=== PATIENT | male | born 1940 | race Caucasian/White ===

== ENCOUNTER 2018-12-13 16:13 | Inpatient (IN) | payer OTHER ==
[~2018-12-13] VITALS: Ht 160 cm; Wt 71.2 kg
--- NOTE | ~2018-12-13 | DS ---
[place], [place] DISCHARGE SUMMARY [id number] UNIT #: [id number] ROOM: 317 DOCTOR: BESS LEBRON MD BIRTHDATE: [birth year] DOS: 12/24/2018 CHIEF COMPLAINT: "Yeah, I need to talk to about being in the [place]." HISTORY OF PRESENT ILLNESS: This is a 78-year-old white male known to me from his stay at [facility] in [place], [place]. The patient is admitted now due to increased sexual behavior that is spiraling out of control. The patient has been making lewd and profane comments. He has also been touching female residents inappropriately and attempting to put his hand under their blouse or in their privates. Attempts to redirect him have only led to him becoming increasingly physically combative with staff. Attempts to utilize medications while at the long-term care facility have not been successful and he has continued to spiral out of control, putting both himself and others at significant risk of harm. He is admitted now to rule out any organic factors to stabilize on medication, to engage in individual and todd milieu activity and to return then to the least restrictive environment. SUMMARY OF HOSPITAL COURSE: The patient was admitted to the unit where he was maintained on his Exelon capsules 6 mg b.i.d. and Namenda 10 mg b.i.d. He was started on Provera 10 mg b.i.d. His Celexa was discontinued and Tagamet was started to decrease his libido. Over time, it became obvious that this was not effective. Additionally, he was found to be grossly delusional and psychotic. He continued to talk about marrying a [place] girl and being in the [place], but when family was contacted, none of this was true. He never served in [place] and was never there. Because of the significant delusions, Risperdal was started to break the psychotic symptomatology. Eventually, the Provera was increased to 10 mg t.i.d. and the Tagamet was stopped in order to lessen the risk of polypharmacy. The patient did become much more redirectable. He did exhibit some sedation with the Risperdal, so eventually it was discontinued and Invega 3 mg in the morning was utilized as a non-sedative approach to break the psychosis. With the Invega, he did seem to be much less delusional and with the Provera at 10 mg t.i.d., he was much less sexual. The patient had improved sufficiently to return back to [facility], where I will be the treating psychiatrist of record. MENTAL STATUS AT DISCHARGE: The patient is alert and oriented to person, place, but not time. Mood still did seem to be somewhat labile, but he was much more redirectable. He was much less sexually preoccupied. He was also much less delusional. He does have processing slowness and short term memory is poor. FINAL DIAGNOSES UPON DISCHARGE: 1. Intermittent explosive disorder. 2. Brief psychotic disorder. 3. Alzheimer's dementia. DISPOSITION: The patient is returning to [facility]. At the time of discharge, he was both medically and psychiatrically stable. I will be the treating psychiatrist of record upon his readmission to [facility]. All of his prescriptions have been e-scribed to [facility] pharmacy. [place], [place] DISCHARGE SUMMARY NAME: [facility] SHAFER [facility] [id number] UNIT #: [id number] ROOM: 317 DOCTOR: BESS LEBRON MD BIRTHDATE: [birth year] BESS LEBRON MD CM:DISCHARG [phone] BESS LEBRON MD 12/24/18 0952 interface
--- NOTE | ~2018-12-13 | PR ---
[place], [place] PROGRESS NOTE [id number] UNIT #: [id number] ROOM: 317 DOCTOR: BESS LEBRON MD BIRTHDATE: [birth year] DOS: 12/21/2018 CHIEF COMPLAINT: "Oh good morning. Breakfast is good." SUMMARY OF THE VISIT: The patient was interviewed as he was finishing his breakfast. He continues to be pleasantly confused and also delusional. He talks elaborately of his exploits in [place], although family reports he did not serve in [place]. He was never to a [place] girl, etc. He also remained somewhat sexually preoccupied, but is able to be redirected. He is tolerating the current medication regimen well and the switch from the Risperdal to the Invega seems to help lessen any sedation and somnolence. MENTAL STATUS: He remains alert and oriented to self, place, but not time. Mood does seem to be strongly trending towards euthymia and affect is more appropriate. There is no zuleyma, hypomania. He remains delusional. Memory has significant gaps. PLAN: I will continue his current psychotropic regimen, continue to engage in individual and todd milieu, returning to the least restrictive environment when psychiatrically stable. BESS LEBRON MD CM:PNTRANS [id number] BESS LEBRON MD 12/21/18 1053 interface
--- NOTE | ~2018-12-13 | PR ---
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 The patient engaged readily in conversation with me. The patient reports that he slept off and on last night because he has nightmares about being in the [place] War and that he has only been out of the war for 4 years and that he has been having these nightmares for the last 2 years. The patient reports that his appetite is good. Staff reports that the patient continues to be euphoric and inappropriate laughing at times. He continues to be delusional thinking that he was in the , which has been confirmed that he has never served in the . He thinks that he was talking to Cyn Mcpherson on the telephone; however, this was his son. The patient reports that he was told by Cyn Mcpherson that he will be receiving a Purple Heart for being a prisoner of war in the Holocaust. MENTAL STATUS EXAMINATION: The patient was alert and oriented to himself. He was pleasant and cooperative with me. Hyperverbal, disorganized. His thought process is disorganized. Positive delusions, some paranoia. No auditory or visual hallucinations noted at this time. The patient's mood was very euphoric. Affect congruent with mood. The patient is very animated. PLAN: I am going to start the patient on Risperdal 0.5 mg twice a day to hopefully improve signs and symptoms in order to diminish the delusions and the paranoia. The patient does have nitrites positive on his urinalysis, medical staff is awaiting a urine culture before they treat him. The patient's phenobarbital level was 38.3. We will continue to monitor the patient for how he tolerates the medication and continue to monitor for effectiveness. Continue to encourage the patient to engage in individual and todd milieu activity. Continue fall and safety precautions. Plan is to return the patient to the least restrictive environment once he is considered psychiatrically stable. [place], [place] PROGRESS NOTE NAME: CYN SHAFER UNIT #: [id number] ROOM: 317 DOCTOR: ROWDY CROCKER CNP BIRTHDATE: [birth year] Rowdy Crocker CNP CM:FRANSISCO 14 ROWDY CROCKER CNP 12/16/18 2214 interface
--- NOTE | ~2018-12-13 | PR ---
[place], [place] PROGRESS NOTE [id number] UN[facility] #: [id number] ROOM: 317 DOCTOR: BESS LEBRON MD BIRTHDATE: [birth year] DOS: 12/19/2018 CHIEF COMPLAINT: "Oh, I haven't been started my breakfast, it's a pretty big one." SUMMARY OF THE VISIT: The patient was interviewed as he was beginning to start his breakfast. He was smiling and engaging. Nurses report he continues to seek out select female peers and is still very sexually inappropriate. He also has grandiose and delusional in his thinking, talking about owning [employer], being in [place], having [place] woman, etc. MENTAL STATUS: He is alert and oriented to person, possibly place, but not to time. Mood is still labile and inappropriate. He has a lot of inappropriate laughing and smiling. His short term memory continues to be poor. PLAN: I will go ahead and change the date of his p.r.n. Ativan to at least go till the end of December and I will simultaneously increase his Risperdal to 1 mg b.i.d. to break the psychotic symptomatology and the delusions. We will monitor and support, engage in individual and todd milieu activity, returning to the least restrictive environment when psychiatrically stable. BESS LEBRON MD CM:PNTRANS 5 [phone] BESS LEBRON MD 12/19/18 232 interface
--- NOTE | ~2018-12-13 | PR ---
[place], [place] PROGRESS NOTE [id number] UNIT #: [id number] ROOM: 317 DOCTOR: ROWDY AMBRIZ CNP BIRTHDATE: [birth year] DOS: 12/15/2018 CHIEF COMPLAINT: "I am doing good so far." SUMMARY OF THE VISIT: The patient was interviewed as he sat in the dining room. He just finished his breakfast. The patient did engage readily in conversation with me. The patient reports that he slept well last night. He reports his appetite is good. He is requesting a banana serial and more milk. Staff reports that the patient has been compliant with his medications. He does laugh inappropriately at times. He did sleep well last night. No aggression or agitation reported. MENTAL STATUS EXAMINATION: The patient was alert and oriented to person, place and time. He is pleasant and cooperative with me. No zuleyma or hypomania noted. No delusions or paranoia noted. No psychotic symptoms noted. No auditory or visual hallucinations noted. The patient's mood was calm. His affect is congruent with mood. No agitation, aggression or irritability noted at this time. PLAN: The patient does have a UTI. The medical doctor has been consulted to treat this. I will continue the patient's other medications as prescribed, monitor for effectiveness of medication and monitor for any side effects. Continue to encourage the patient to engage in individual and todd milieu activity. Continue fall and safety precautions. Plan is to return the patient to the least restrictive environment when he is considered psychiatrically stable. Rowdy Ambriz CNP CM:PNTRANS [phone] ROWDY AMBRIZ CNP 12/15/18 2344 interface
--- NOTE | ~2018-12-13 | WRIGHTHP ---
[place], [place] PATIENT HISTORY AND PHYSICAL EXAM [id number] #: [id number] ROOM: 317 DOCTOR: BESS LEBRON MD BIRTHDATE: [birth year] DOS: 12/14/2018 INITIAL PSYCHIATRIC EVALUATION CHIEF COMPLAINT: "Yeah, I need to talk to you about being in the [place]." HISTORY OF PRESENT ILLNESS: This is a 78-year-old white male known to me from his stay at [facility]. The patient is admitted due to increased sexual behavior that is spiraling out of control. The patient has been making lewd comments, but he has also been touching female residents inappropriately attempting to put his hand under their blouse or in their privates. Attempts to redirect him have only led to him being physically combative with staff. Attempts to utilize medications to stop the sexual behavior and the agitation have been unsuccessful and he is putting others at substantial risk for self-harm as well as himself. He is admitted now to rule out organic factors and to attempt to stabilize on medication, returning then to the least restrictive environment when psychiatrically stable. PAST MEDICAL HISTORY: Remarkable for atrial fibrillation and atrial flutter, coronary artery disease, diabetes, DVT, hyperlipidemia, hypertension, hypothyroidism, seizure disorder, and vitamin D deficiency. ALLERGIES: He lists allergies to DEPAKOTE, IODINE, SHELLFISH and PENICILLIN. SOCIAL HISTORY: He is a former smoker. Does have a history of alcohol use. No known drug use. STRENGTHS: Good verbal skills. WEAKNESSES: Cognitive decline, poor impulse control, poor coping skills. MENTAL STATUS: He is alert and oriented to person, possibly place, not to time. He does remember he lives at [place]. He does have patchy gaps in his memory. He appears to have poor impulse control. He does not appear manic or hypomanic and does not appear psychotic. Memory has gaps. DIAGNOSES: Intermittent explosive disorder, Alzheimer's dementia. PLAN: I have maintained Exelon and Namenda. I have started him on Provera 10 mg b.i.d. I have discontinued Celexa, but will start Tagamet as well to decrease his libido. Between the Tagamet and the Provera, I am hoping to impact positively on this impulse control issue which are putting many women at risk for harm. We will continue to engage in individual and todd milieu activity, returning to the least restrictive environment when psychiatrically stable. [place], [place] PATIENT HISTORY AND PHYSICAL EXAM NAME: CYN SHAFER UNIT #: [id number] ROOM: 317 DOCTOR: BESS LEBRON MD BIRTHDATE: [birth year] BESS LEBRON MD CM:HISPHYS:PATIENT HISTORY AND PHYSICAL EXAMINATION [phone] BESS LEBRON MD 12/14/18 1042 interface
--- NOTE | ~2018-12-13 | PR ---
[place], [place] PROGRESS NOTE [id number] UNIT #: [id number] ROOM: 317 DOCTOR: BESS LEBRON MD BIRTHDATE: [birth year] DOS: 12/17/2018 INTERVAL NOTE CHIEF COMPLAINT: "This is a big breakfast." SUMMARY OF THE VISIT: The patient was interviewed as he was sitting down to his breakfast. He smiled as I approached, he engaged readily in conversation, voicing no complaints. Nurses report that overall he has been very compliant. Much of the stories that he talks about of being in [place] have turned out to be fabrication. The patient is not showing agitation or aggression, however. MENTAL STATUS EXAMINATION: He is alert and oriented to self, unclear place, certainly not time. Mood does seem to be fairly euthymic. Affect appropriate. There is no zuleyma or hypomania. There is no gross psychotic symptoms. Short term memory is very poor. PLAN: I will continue his current psychotropic regimen, continue to engage in individual and todd milieu activity, returning to the least restrictive environment when psychiatrically stable. BESS LEBRON MD CM:PNTRANS [phone] BESS LEBRON MD 12/17/182233 interface
--- NOTE | ~2018-12-13 | EKG ---
[place], [place] ELECTROCARDIOGRAM REPORT NAME: CYN SHAFER UNIT #: [id number] ROOM: 317 DOCTOR: EPIPHANY DRAFT REPORT BIRTHDATE: [birth year] [facility] Test Date: 2018-12-13 Test Time: 23:50:56 Pat Name: CYN SHAFER Department: Room: [facility] 1 Gender: M Flex O Writer Operator: Araseli Daigle : 1940 Requested By: BESS LEBRON Order Number: [id number] Reading MD: Catrachita Schumacher MD Measurements Intervals Stevens Rate: 53 P: 48 SC: 172 QRS: -54 QRSD: 143 T: 14 QT: 445 QTc: 418 Interpretive Statements Sinus rhythm RBBB and LAFB Electronically Signed On 12-16-2018 7:44:24 PDT by Catrachita Schumacher MD CM:EKGRPT:ELECTROCARDIOGRAM REPORT [id number] BESS LEBRON MD EPIPHANY DRAFT REPORT BESS LEBRON MD
[~2018-12-13 16:13] MED LIST: BACLOFEN5 MG PO; CARDIZEM120 MG PO; CRESTOR10 M1 PO; ELIQUIS5 M1 PO; LANTUS SOL100 UNIT/1 SQ; MIRALAX17 GM PO; PHENOBARBITAL PO; RIVASTIGMINE TAR6 M1 PO; SYNTHROID25 MCG PO; VITAMIN D5000 UNI1 PO; ZONEGRAN100 MG PO
[2018-12-13 16:20] VITALS: BP 150/62
--- NOTE | 2018-12-13 18:01 | NUR ---
pt resting in bed with eyes closed. No complaints at this time. call light within reach.
--- NOTE | 2018-12-13 18:44 | NUR ---
[facility] HERE TO TRANSFER PT TO THE FLOOR.
[2018-12-13 18:50] VITALS: BP 156/78
[2018-12-13 19:30] VITALS: BP 156/78
--- NOTE | 2018-12-13 20:00 | NUR ---
CYN SHAFER a 78 year old M admitted via from the ADMITTING as a emergency 72 hr. hold admission. Arrived on unit at 1850 ALLERGIES: PENICILLIN, DEPAKOTE, IODINE, SHELLFISH. Vital signs are: 97.7-66-20 137/70. The IS PINK SLIPPED AND REFUSED TO SIGN THE following forms with stated: Authorization For The Release of Medical Information, Clothing List, Consent to Voluntary Admission and Hospitalization, Consent and Release Forms/Receipt of Rights, Acknowledgement of Advance Directive Information, Behavioral Health Consent Form, and Informed Consent of Medications. Admitted under the services of [facility]. A search was conducted and hazardous articles were removed. Client was oriented to the unit. LIZBETH MTZ PATIENT WITH NO WOUNDS ON ADMISSION. PATIENT CAME TO [facility] FROM [facility] AND WAS PINK SLIPPED.
[2018-12-13 20:13] VITALS: BP 137/70
[2018-12-13] MEDS ORDERED: NAMENDA-14 PO (20:29)
[2018-12-13] MEDS ORDERED: NAMENDA-21 PO (20:30)
[2018-12-13] MEDS ORDERED: NAMENDA-28 PO (20:32)
[2018-12-13] MEDS ORDERED: PROVERA10 MG PO (20:33)
[2018-12-13] MEDS ORDERED: CELEXA20 MG PO (20:34)
[2018-12-13 20:42] VITALS: BP 137/70
--- NOTE | 2018-12-13 20:50 | NUR ---
DR PELLETIER ON UNIT TO SEE PATIENT. DR PELLETIER ORDERED LAB WORK AND RADIOLOGY
--- NOTE | 2018-12-13 22:38 | NUR ---
DR RAMIREZ UPDATED ABOUT PATIENT ADMISSION. PATIENT UNDER DR FINLEY FOR MEDICAL MANAGEMENT
--- NOTE | 2018-12-13 23:34 | NUR ---
PATIENT OFF UNIT WITH MENTAL HEALTH WORKER, RN, AND SECURITY FOR CHEST XRAY
--- NOTE | 2018-12-13 23:45 | NUR ---
PATIENT RETURNED AND BACK FROM RADIOLOGY AND RECEIVED CHEST XRAY
--- NOTE | 2018-12-13 23:50 | NUR ---
RESPIRATORY ON UNIT TO DO PATIENT EKG
[2018-12-14 00:01] LABS: BASO % 0.8 % (0.0-1.0); EOS # 0.3 10*3/uL (0.0-0.4); EOS % 6.4 % (1.0-4.0); HEMATOCRIT 40.3 % (42.0-52.0); HEMOGLOBIN 13.3 g/dl (14.0-18.0); LYMPH # 1.3 10*3/uL (1.3-4.4); LYMPH % 24.7 % (27.0-41.0); MEAN CELL VOLUME 91.2 fl (80.0-94.0); MEAN CORPUSCULAR HGB 30.1 pg (27.0-31.0); MEAN PLATELET VOLUME 10.9 fl (9.6-12.3); MONO # 0.5 10*3/uL (0.1-1.0); NEUT % 57.7 % (47.0-73.0); PLATELET COUNT AUTOMATED 186 10*3/uL (130-400); RED BLOOD COUNT 4.42 10*6/uL (4.50-5.90); RED CELL DISTRI WIDTH 14.3 % (0-14.5); WHITE BLOOD COUNT 5.2 10*3/uL (4.8-10.8)
[2018-12-14 00:08] LABS: ALBUMIN 3.2 gm/dl (3.1-4.5); ALKALINE PHOSPHATASE 115 U/L (45-117); BUN 14 mg/dl (7-24); CHLORIDE 110 mmol/L (98-107); CREATININE 0.82 mg/dL (0.70-1.30); POTASSIUM 4.6 mmol/L (3.5-5.1); SGOT/AST 21 IU/L (3-35); SGPT/ALT 43 U/L (12-78); SODIUM 141 mmol/L (136-145); TOTAL PROTEIN 6.4 gm/dL (6.4-8.2)
--- NOTE | 2018-12-14 03:57 | NUR ---
24 HR chart check completed.
--- NOTE | 2018-12-14 06:12 | NUR ---
PATIENT SLEPT >5 HOURS OF INTERRUPTED SLEEP THROUGHOUT SHIFT. Q 15 MINUTE CHECKS MAINTAINED
[2018-12-14 07:42] LABS: THYROID STIM HORMONE (HS) 3.91 uIU/ml (0.358-4.75)
--- NOTE | 2018-12-14 07:58 | NUR ---
DR. FINLEY ON FLOOR TO ASSESS PT, UPDATE PROVIDED.
[2018-12-14 08:00] VITALS: BP 133/67
[2018-12-14 08:00] LABS: VITAMIN D, 25-HYDROXY 60.5 ng/mL (30-100)
--- NOTE | 2018-12-14 08:30 | NUR ---
Treatment Plan meeting with Dr. Recinos, RN, AT, SW and Social Psychologist. plan for discharge Next week. Pt. came to [facility]. Will reach out to facility to discuss discharge Planning.
--- NOTE | 2018-12-14 09:01 | NUR ---
PHYSICAL THERAPY Nursing screen received and chart reviewed. PT orders received. Thank you Liberty Drake, SPT Lydia Patel,PT,DPT.
--- NOTE | 2018-12-14 10:00 | NUR ---
SPEECH RECOMMENDED TO CONTINUE PATIENTS DIET.
--- NOTE | 2018-12-14 10:34 | NUR ---
SPEECH THERAPY Patient seen for bedside swallowing evaluiation this morning. He was referred due to history of dysphagia. Patient with PMHx s/f intermittent explosive disorder, a-fib and flutter, DM, HTN, and seizure disorder. Patient was pleasant and cooperative throughout evaluation. He was oriented to self and location, but not able to provide the year. He followed single-step verbal commands and answered questions appropriately, however mild confusion and perseveration was observed. Patient currently receives a regular diet. His WBC is WNL and CXR dated 12/13 found "no acute pulmonary abnormality." Oral mech exam revealed mildly reduced lingual ROM and labial coordination. Patient reported he sometimes feels something "is stuck in his throat" when asked about difficulties with swallowing. Patient was assessed with ice chips, sips of thin liquid via cup, appleasuce, and lunchmeat sandwich. Patient produced cough 1x duirng evaluation. Without prompting or questioning, patient reported that he coughs "all day long" and he has had this cough for "a couple weeks." Cough did not appear to be in relation to patient's swallow mechanism. Patient demonstrated tolerance of regular diet with thin liquids, with no overt s/s of penetration or aspiration observed. Increased sip size with consecutive sips were observed. Patient educated on importance of small, single sips, with improved consumption on remaining trials. He denied difficulty with meal and globus sensation. Provided education on alternating between solids and liquids to help clear oral cavity and possible pharyngeal residues. Recommended patient remain on regular diet with thin liquids. [place] safe swallowing strategies are recommended which include small bites and sips and alternating between solids and liquids. Results and recommendations were shared with patient and patient's nurse. No follow-up treatment recommended due to functional oropharyngeal swallow and tolerance of least restrictive diet. Carolina Schaffer MA CCC-PRODUCTION DESIGNER
--- NOTE | 2018-12-14 11:00 | NUR ---
Nursing screen and occupational therapy referral received. Thank you. Ana Hermosillo OTR/L
--- NOTE | 2018-12-14 11:53 | NUR ---
Faxed admission clinical to [facility]. Awaiting response.
--- NOTE | 2018-12-14 12:16 | NUR ---
Spoke with pt's son Cesar. Per Cesar, pt is extremely delusional since early 2017. Cesar further explained that pt was living alone and doing well. Cesar found the pt on the kitchen floor in 04/27. Pt had multiple seizures and was in a coma for 6 weeks. Since recovering from this, pt has never been the same. Cesar stated that he never knows who pt is going to be when he goes to visit pt. 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 Empathized with Cesar as he shared the difficulty in seeing these changes in his father.
--- NOTE | 2018-12-14 12:46 | NUR ---
Shift chart check completed.
--- NOTE | 2018-12-14 13:26 | NUR ---
Spoke with Kaity at [facility]. Pt. is LTC at Facility and will return to [facility] at discharge. Clinical Updates faxed to facility.
--- NOTE | 2018-12-14 13:52 | NUR ---
PHYSICAL THERAPY Physical therapy evaluation attempted. Patient in group activities at this time. Will try PT evaluation again at a later time/date. Thank you. Lydia Patel,PT,DPT.
--- NOTE | 2018-12-14 13:52 | NUR ---
Patient unavailable for Occupational Therapy eval at this time due to participation in group session. Will attempt OT eval at a later date. Yoseph Conner S/Ot Ana Hermosillo OTR/l
--- NOTE | 2018-12-14 15:36 | NUR ---
PM GROUP PT ATTENDED AND PARTICIPATED IN AFTERNOON GROUP THERAPY BY SOCIALIZING AND LISTENING TO MUSIC. PT IS VERY TALKATIVE AND INTERRUPTS WHEN OTHERS ARE TALKING. PT IS DELUSIONAL AND GRANDIOUS. PT EXHIBITED NO INAPPROPRIATE SEXUAL BEHAVIOR WHILE IN GROUP
--- NOTE | 2018-12-14 15:54 | NUR ---
P- PATIENT ALERT TO PERSON AND APPROXIMATE PLACE. ST/LT MEMORY DEFICITS NOTED AT TIMES. I- REORIENT FREQUENTLY WHEN CONFUSION IS NOTED. 1:1 INTERACTION WITH EMOTIONAL SUPPORT PROVIDED. PROVIDE MEDICATIONS ON TIME WITH EDUCATION ON EACH. ENCOURAGE TO ATTEND/PARTICIPATE IN GROUP THERAIES FOR EMOTIONAL SUPPORT AND INTERACTION. ASSESS MOOD, ORIENATION, SI/HI, HALLUCINATIONS, DELUSIONS, OR PAIN. R- REORIENTATION EFFECTIVE. MOOD PLEASANT. INTERACTIVE WITH PEERS AND STAFF. PARTICIPATING AND ATTENDING GROUP THERAPY. MED COMPLIANT. DENIES HALLUCINATIONS, DELUSIONS, SI/HI OR PAIN. NO S/S OF INTERACTING WITH INTERNAL STIMULI. NO DELUSIONAL THOUGHT PROCESS NOTED. NO S/S OF DISTRESS NOTED. RESPS EVEN AND UNLABORED ON ROOM AIR. PATIENT UTILIZE WHEELCHAIR DUE TO UNSTEADY GAIT. ONE ASSIST WITH TRANSFERING DUE TO UNSTEADY GAIT. P- REORIENT FREQUENTLY WITH CONFUSION. ASSESS MOOD, ORIENTATION, SI/HI, HALLUCINATIONS, DELUSIONS OR PAIN EVERY SHIFT. ENCOURAGE TO ATTEND/PARTICIPATE IN GROUP THERAPIES. PROVIDE MEDS ON TIME WITH EDUCATION ON EACH. ONE ASSIST WITH TRANSFERING DUE TO UNSTEADY GAIT. FALLING STAR PROGRAM IN PLACE. SEIZURE PRECAUTION IN PLACE DUE TO HISTORY. Q15 MINUTE CHECKS MAINTAINED FOR SAFETY.
[2018-12-14 20:00] VITALS: BP 141/73
--- NOTE | 2018-12-14 23:40 | NUR ---
24 HR chart check completed.
[2018-12-15 07:06] LABS: BILIRUBIN NEGATIVE (NEGATIVE); BLOOD TRACE-INTACT (NEGATIVE); CLARITY CLOUDY (CLEAR); COLOR YELLOW (YELLOW); GLUCOSE NEGATIVE (NEGATIVE); KETONE NEGATIVE (NEGATIVE); LEUKO ESTERASE 1+ (NEGATIVE); NITRITE POSITIVE (NEGATIVE); SPECIFIC GRAVITY 1.015 (1.005-1.030); UROBILINOGEN 0.2 E.U./dl (0.2-1.0)
[2018-12-15 07:12] LABS: BACTERIA 4+; EPITHELIAL CELLS 0-2; RBC 0-2 rbc/hpf (0-2); WBC 31-40 wbc/hpf (0-5)
--- NOTE | 2018-12-15 08:02 | NUR ---
PT AWAKE AND ALERT. RESPS EASY AND EVEN ON ROOM AIR. FEEDING SELF BREAKFAST IN DINING ROOM WITH PEERS. NO DISTRESS NOTED. SUSY [employer] COUNCIL MEMBER ON UNIT TO SEE PT AT THIS TIME FOR . UPDATE GIVEN.
[2018-12-15 08:15] VITALS: BP 138/73
--- NOTE | 2018-12-15 09:30 | NUR ---
ON UNIT TO SEE PT AT THIS TIME.
--- NOTE | 2018-12-15 11:00 | NUR ---
SPOKE TO REGARDING PT'S SEIZURE MEDICATIONS. PER JAIL MEDICATION ADMINISTRATION RECORD, PT TAKES BOTH ZONEGRAN 200MG PO TWICE DAILY AND PHENOBARBITAL 50MG Q8H PO FOR SEIZURES. MADE AWARE ZONEGRAN IS A NON-FORMULARY MEDICATION AND IS UNAVAILABLE WHILE INPATIENT HERE AT [facility], MADE AWARE PT WAS ORDERED AN INCREASED DOSE OF PHENOBARBITAL AT 100MG TID UPON ADMISSION BY HOSPITALIST RESIDENT. REQUESTS THIS NURSE CONTACT PHARMACIST TO INQUIRE WHETHER OR NOT THE HOSPITAL COULD ORDER ZONEGRAN AND IF NOT, IF THERE ARE ANY OTHER SEIZURE MEDICATIONS THAT COULD BE SUBSTITUTED. SPOKE TO [facility] PHARMACIST REGARDING THE ABOVE. PER CONVERSATION WITH PHARMACIST ZONEGRAN IS UNAVAILABLE. ZONEGRAN IS A BROAD-SPECTRUM ANTI-SEIZURE MEDICATION, VIMPAT IS A SIMLIAR MEDICATION WITH A SIMILAR MECHANISM OF ACTION TO ZONEGRAN, HOWEVER, IT IS A MORE NARROW-SPECTRUM MEDICATION WHEREAS KEPPRA HAS A DIFFERENT MECHANISM OF ACTION BUT IS A MORE BROAD-SPECTRUM MEDICATION SIMILAR TO PT'S HOME MED. MADE AWARE OF THE ABOVE. STATES HE WILL DECREASE PHENOBARBITAL DOSE BACK TO PT'S HOME DOSE AND START KEPPRA 500MG PO BID.
--- NOTE | 2018-12-15 11:56 | NUR ---
AM/EXERCISE/BINGO PT ATTENDED AND PARTICIPATED IN GROUP. PT PLEASANT AND ON TASK WITH NO SEXUAL INAPPROPRITAE BEHAVIORS EXPRESSED. PT CHOSE TO DRAW RATHER THAN PLAY BINGO. PT WILL CONTINUE TO ATTEND AN DPARTICIPATE IN FUTURE RGOUP SESSIONS TO VBEST OF ABILITY.
--- NOTE | 2018-12-15 15:37 | NUR ---
P- CONFUSION. ST/LT MEMORY GAPS. DELUSIONAL THOUGHT PROCESSES. MOOD APPEARS STABLE, AFFECT ANIMATED AT TIMES. I- ORIENTATION, MOOD AND BEHAVIORS ASSESSED. ASSESSED PT FOR SI/HI, INTENT OR PLAN. ASSESSED PT FOR S/S HALLUCINATIONS, PARANOIA AND/OR DELUSIONS. MEDICATIONS ADMINISTERED PER PHYSICIAN'S ORDERS. ASSISTANCE WITH ADL CARE PROVIDED NEEDED. ENCOURAGED PT TO ATTEND AND PARTICIPATE IN BISWAS [place] GROUPS AND ACTIVITIES. R- PT IS ALERT AND ORIENTED TO PERSON ONLY, STATES HE IS "IN THE BREAKRO[employer] AT THE [employer]". NOT ORIENTED TO TIME OR SITUATION. 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 MEMORY IMPAIRMENTS NOTED. RESPS EASY AND EVEN ON ROOM AIR. PT REPORTS FEELING "DEPRESSED BECAUSE I HAVEN'T BEEN HOME IN 5 YEARS, I'VE BEEN IN THE [employer] AND [place] [employer] ALL THAT TIME AND I'VE BEEN REALLY BUSY RUNNING ALL OF MY OWN BUSINESSES". HOWEVER, MOOD APPEARS STABLE WITH ANIMATED AFFECT AT TIMES. FREQUENT SMILING AND OCCASIONAL INAPPROPRIATE LAUGHTER NOTED. SPEECH IS WNL AND COHERENT, ABLE TO MAKE NEEDS KNOWN WITHOUT DIFFICULTY. PT DENIES SI/HI, INTENT OR PLAN. PT STATES "NO, IN FACT I'D NEVER WANT TO HURT MYSELF OR ANYONE ELSE. I JUST WANT TO HELP EVERYONE. I'LL TELL YOU WHAT, YOU WRITE YOURSELF AND EVERYONE ELSE A CHECK AND SEND THEM ALL OUT. I'LL MAKE SURE THEY ALL CLEAR AT THE BANK AND THAT'LL TAKE CARE OF IT ALL". NO HALLUCINATIONS OR PARANOIA NOTED. PT IS MEDICATION COMPLIANT WITHOUT DIFFICULTY. NO AGGRESSIVE OR SEXUALLY INAPPROPRIATE BEHAVIORS DISPLAYED OF THIS TIME THE SHIFT. NO DISTRESS NOTED. P- PLAN TO CONTINUE CURRENT TREATMENT, CONTINUE TO MONITOR MOOD AND BEHAVIORS, PROVIDE APPROPRIATE REORIENTATION, REDIRECTION AND 1:1 NEEDED. CONTINUE TO ENCOURAGE MEDICATION COMPLIANCE WELL GROUP ATTENDANCE AND PARTICIPATION.
--- NOTE | 2018-12-15 16:03 | NUR ---
PM/REMINISCE PT ATTENDED AND PARTICIPATED DURING GROUP. PT PLEASANT AT THIS TIME WITH NO SEXUALLY INAPPROPRIATE BEHAVIORS EXPRESSED. PT WILL CONTINEU TO ATTEDN AND PARTICIPATE IN FUTURE GROUP SESSIONS TO BEST OF ABILITY.
--- NOTE | 2018-12-15 16:28 | NUR ---
SHIFT CHART CHECK COMPLETED.
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
[2018-12-15 19:58] VITALS: BP 136/65
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
--- NOTE | 2018-12-15 23:46 | NUR ---
24 HR chart check completed.
--- NOTE | 2018-12-16 05:56 | NUR ---
PATIENT MONITORED ON Q15 MINUTE SAFETY CHECKS THROUGHOUT THE NIGHT. PT NOTED TO HAVE SLEPT APPROXIMATELY 7 HOURS WITH A BRIEF AWAKENING.
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
[2018-12-16 07:53] VITALS: BP 132/77
--- NOTE | 2018-12-16 08:02 | NUR ---
PT AWAKE AND ALERT. RESPS EASY AND EVEN ON ROOM AIR. FEEDING SELF BREAKFAST IN DINING ROOM WITH PEERS AT THIS TIME. NO DISTRESS NOTED. SUSY BOX PRESS OPERATOR ON UNIT TO SEE PT AT THIS TIME, UPDATE GIVEN.
--- NOTE | 2018-12-16 10:30 | NUR ---
ON UNIT TO SEE PT AT THIS TIME. MADE ARE OF PRELIMINARY URINE CULTURE RESULT >100,000 HEAVY GNB. ALSO MADE AWARE OF PHENOBARBITAL LEVEL THIS AM.
--- NOTE | 2018-12-16 18:41 | NUR ---
P- MILD CONFUSION AND MEMORY GAPS NOTED. PLEASANT AND COOPERATIVE. MED COMPLIANT WITHOUT DIFFICULTY. NO DELUSIONAL THOUGHTS VOICED TO STAFF THIS DATE, NO SEXUALLY INAPPROPRIATE BEHAVIORS DISPLAYED. I- ORIENTATION, MOOD AND BEHAVIOR ASSESSED. ASSESSED PT FOR SI/HI, INTENT OR PLAN. ASSESSED PT FOR S/S HALLUCINATIONS, PARANOIA AND/OR DELUSIONS. MEDICATIONS ADMINISTERED PER PHYSICIAN'S ORDERS. ASSISTANCE WITH ADL CARE PROVIDED NEEDED. ENCOURAGED PT TO ATTEND AND PARTICIPATE IN [employer] [place] GROUPS AND ACTIVITIES. R- PT IS ALERT AND ORIENTED TO PERSON AND PLACE. NOT TO TIME OR SITUATION. MEMORY GAPS NOTED. RESPS EASY AND EVEN ON ROOM AIR. MOOD APPEARS EUTHYMIC, AFFECT BROAD RANGE. PT IS CALM, PLEASANT AND COOPERATIVE. SPEECH IS WNL AND COHERENT, ABLE TO MAKE NEEDS KNOWN WITHOUT DIFFICULTY. PT DENIES SI/HI, INTENT OR PLAN. PT DENIES HALLUCINATIONS, NO RESPONSE TO INTERNAL STIMULI NOTED. NO VOICED DELUSIONS TO STAFF THIS DATE. NO PARANOIA NOTED. NO AGGRESSIVE OR SEXUALLY INAPPROPRIATE BEHAVIORS DISPLAYED THIS SHIFT. PT IS MEDICATION COMPLIANT WITHOUT DIFFICULTY. NO DISTRESS NOTED. P- PLAN TO CONTINUE CURRENT TREATMENT, CONTINUE TO MONITOR MOOD AND BEHAVIORS, PROVIDE APPROPRIATE REORIENTATION, REDIRECTION AND 1:1 NEEDED. CONTINUE TO ENCOURAGE MEDICATION COMPLIANCE WELL GROUP ATTENDANCE AND PARTICIPATION.
--- NOTE | 2018-12-16 18:57 | NUR ---
SHIFT CHART CHECK COMPLETED.
[2018-12-16 19:55] VITALS: BP 132/59
--- NOTE | 2018-12-17 03:38 | NUR ---
PT SMILING, PLEASANT COOPERATIVE WITH MEDICATIONS. WITH NO S/S OF AGGRESSION SI/HI OR DELUSIONS. INTERACTIVE WITH PEERS, PT WATCHED FOOTBALL THIS EVENING ROOTING FOR VARIOUS TEAMS. ASSISTED TO BED BY STAFF 2 ASSIST. PT WAS APOLOGETIC FOR NEEDING HELP. ENCOURAGEMENT GIVEN, PT HAS REMOVED HIS CLOTHING THROUGH OUT THE COURSE OF THE EVENING AND WAS INCONTNENT OF BLADDER. COOPERATIVE WITH CLOTHING CHANGES AND CARE. CONTINUE TO MONITOR AT THIS TIME 15 MIN CHECKS
[2018-12-17 07:53] VITALS: BP 109/65
--- NOTE | 2018-12-17 08:30 | NUR ---
Treatment Plan meeting with Dr. Recinos, RN, AT, SW and Non Emergency Services Ambulance Driver. Plan for discharge Monday. Pt. will return to [facility].
--- NOTE | 2018-12-17 10:48 | NUR ---
DR FINLEY ON THE UNIT TO ASSESS PT. UPDATE PROVIDED.
--- NOTE | 2018-12-17 11:44 | NUR ---
Faxed admission clinical to [facility] as no determination has been received, . Awaiting response.
--- NOTE | 2018-12-17 12:05 | NUR ---
AM GROUP/EXERCISE AND BRAIN GAMES PT ATTENDED MORNING GROUP THERAPY AND PARTICIPATED LIMITEDLY. 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 PT EXHIBITED NO INAPPROPRIATE SEXUAL BEHAVIOR WHILE IN GROUP
--- NOTE | 2018-12-17 14:10 | NUR ---
Patient not available for Occupational Therapy evaluation as he is in group therapy session. Ana Hermosillo OTR/l
--- NOTE | 2018-12-17 14:10 | NUR ---
PHYSICAL THERAPY Physical therapy evaluation attempted. Patient in group session at this time. Will try PT evaluation again at a later time/date. Thank you. Lydia Patel,PT,DPT.
--- NOTE | 2018-12-17 14:45 | NUR ---
Spoke with Kaity at [facility]. Notified of discharge Plans. Clinical Updates faxed to facility.
--- NOTE | 2018-12-17 15:23 | NUR ---
Spoke to Prabha fregoso Bertha Senior [phone]. IP 6 days katie. NRD 12/18. Ref # [id number]. Continued stay reviewer will be Toma [phone].
--- NOTE | 2018-12-17 15:37 | NUR ---
Treatment plan meeting with Dr. Recinos, RN, AT, SW and Produce Sorter. Plan for discharge Monday. Pt. will return to [facility].
--- NOTE | 2018-12-17 15:38 | NUR ---
PM GROUP/LEISURE INTERESTS PT ATTENDED AFTERNOON GROUP THERAPY AND PARTICIPATED BY DOING A WORDSEARCH. PT WAS VERY DELUSIONAL AND EXPERIENCING VISUAL HALLUCINTATIONS WHEN PT ASKED IF I COULD LOCK A VERY VALUABLE THING IN THE SAFE? PT "PULLED THE PURPLE HEART/MEDAL OF HONOR FROM INSIDE OF HIS SHIRT AND "SHOWED IT TO ME". PT HAD NOTHING IN HIS HAND. PT DID NOT EXHIBIT ANY INAPPROPRIATE SEXUAL BEHAVIORS WHILE IN GROUP
--- NOTE | 2018-12-17 17:15 | NUR ---
PATIENT CURRENTLY SITTING IN DINING ROOM WITH PEERS EATING DINNER. PT'S MOOD EUTHYMIC, INAPPROPRIATE LAUGHTER WITH INTERACTION. PATIENT ALERT TO PERSON ONLY. ST/LT MEMORY DEFICITS NOTED. REDIRECTION AND REORIENTATION EFFECTIVE. DENIES HALLUCINATIONS, SI/HI OR PAIN. NO S/S OF INTERACTING WITH INTERNAL STIMULI NOTED. NO DELUSIONAL THOUGHT PROCESS NOTED AT THIS TIME. NO S/S OF DISTRESS NOTED. RESPS EVEN AND UNLABORED ON ROOM AIR. PT UTILIZE WHEELCHAIR DUE TO UNSTEADY GAIT. MAKES NEEDS KNOWN. ONE TO TWO PERSON ASSISTANCE WITH TRANSFERING AND CARE. FALLING STAR PROGRAM IN PLACE. SEIZURE PRECAUTIONS MAINTAINED. Q15 MINUTE CHECKS MAINTAINED FOR SAFETY.
--- NOTE | 2018-12-17 17:48 | NUR ---
Shift chart check completed.
[2018-12-17 19:46] VITALS: BP 123/60
[2018-12-17 20:00] VITALS: BP 123/60
--- NOTE | 2018-12-17 21:43 | NUR ---
P- ALERT TO PERSON ONLY. CONFUSION AND ST/LT MEMORY DEFICITS NOTED. MOOD EUTHYMIC, INAPPROPRIATE LAUGHTER DURING INTERACTION. I- REORIENT FREQUENTLY WHEN CONFUSION IS NOTED. ASSESS MOOD, ORIENTATION, SI/HI, HALLUCINATIONS, DELUSIONS, OR PAIN. PROVIDE MEDICATIONS ON TIME WITH EDUCATION ON EACH. PROVIDE WITH HS SNACK. ONE TO TWO PERSON ASSIST WITH TRANSFERING DUE TO UNSTEADY GAIT. R- REMAINS ALERT TO PERSON ONLY. PT STATED "IT HAS BEEN A LONG DAY HERE AT WORK. I HAD SO MUCH TO DO." "I AM HERE FOR TESTING TO GET DONE". REORIENTATION INEFFECTIVE. DENIES HALLUCINATIONS, SI/HI OR PAIN. NO S/S OF INTERACTING WITH INTERNAL STIMULI. NO S/S OF DISTRESS NOTED. RESPS EVEN AND UNLABORED ON ROOM AIR. MEDICATION COMPLIANT WITH NO DIFFICULTIES. INTERACTIVE WITH PEERS AND STAFF. PT UTILIZE WHEELCHAIR DUE TO UNSTEADY GAIT. MAKES NEEDS KNOWN. ONE TO TWO PERSON ASSSIT WITH TRANSFERING DUE TO UNSTEADY GAIT. P- REORIENT FREQUENTLY WHEN CONFUSION IS NOTED. PROVIDE WITH MEDICATIONS ON TIME WITH EDUCATION ON EACH. ASSESS MOOD, ORIENTATION, SI/HI, HALLUCINATIONS, DELUSIONS OR PAIN EVERY SHIFT. ONE TO TWO PERSON ASSIST WITH TRANSFERING DUE TO UNSTEADY GAIT. FALLING STAR PROGRAM IN PLACE. SEIZURE PRECAUTIONS MAINTAINED DUE TO HISTORY. Q15 MINUTE CHECKS MAINTAINED FOR SAFETY.
--- NOTE | 2018-12-17 21:52 | NUR ---
24 HR chart check completed.
--- NOTE | 2018-12-18 05:36 | NUR ---
PATIENT MONITORED ON Q15 MINUTE SAFETY CHECKS THROUGHOUT THE NIGHT. PATIENT NOTED TO HAVE SLEPT APPROXIMATE 8 HOURS UNINTERRUPTED.
[2018-12-18 08:31] VITALS: BP 145/73
--- NOTE | 2018-12-18 10:35 | NUR ---
DR. FINLEY ON UNIT TO ASSESS PT, UPDATE PROVIDED.
--- NOTE | 2018-12-18 11:56 | NUR ---
AM GROUP PT ATTENDED AND PARTICIPATED IN ALL GROUP ACTIVITIES. PT WAS QUIET AND ON TASK. PT EXPRESSED SOME DELUSIONAL IDEATIONS TO NURSING STUDENTS BUT EXHIBITED NO INAPPROPRIATE SEXUAL BEHAVIORS.
--- NOTE | 2018-12-18 13:29 | NUR ---
IP 3 additional days katie per Toma fregoso [facility]. LCD/NRD 12/21. Ref # [id number].
--- NOTE | 2018-12-18 14:40 | NUR ---
Patient not available for Occupational Therapy as he is in group therapy session. Ana Hermosillo OTR/l
--- NOTE | 2018-12-18 14:40 | NUR ---
PHYSICAL THERAPY Patient in group session at this time. Will attempt PT evaluation at a later date. Thank you. Lydia Patel,PT,DPT.
--- NOTE | 2018-12-18 15:34 | NUR ---
PM GROUP/ART AND MUSIC PT ATTENDED AFTERNOON GROUP THERAPY AND PARTICIPATED BY WORKING ON A WATERCOLOR. PT WAS NOTED TO BE "STARING OFF INTO SPACE" FOR A LONG TIME AND WOULD NOT RESPOND TO QUESTIONS. PT STATED AT THE END OF GROUP, "WELL, I GOT A LOT OF THINKING DONE AND I THINK I WANT TO LEAVE [place] AND COME LIVE HERE" PT EXHIBITED NO INAPPROPRIATE SEXUAL BEHAVIOR WHILE IN GROUP
--- NOTE | 2018-12-18 17:03 | NUR ---
NO ADVERSE MOODS OR BEHAVIORS NOTED AT THIS TIME. 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 STAFF PROVIDED RE-ORIENTATION AND PRESENTATION OF REALITY. PT INTERACTIVE AND PARTICIPATING WITH STAFF AND PEERS. PT CALM, MOOD IS [place]. PT MED COMPLIANT WITHOUT DIFFICULTY, UNABLE TO PROVIDE MED EDUCATION D/T COGNITION. NO HALLUCINATIONS NOTED. PT UP TO WHEELCHAIR, REQUIRES 2 STAFF ASSIST FOR TRANSFERS AND CARE. PT CONTINENT OF BOWEL AND BLADDER, EPISODES OF INCONTNENCE NOTED, CARE PROVIDED NEEDED. PLAN IS TO PROVIDE EMOTIONAL SUPPORT AND 1:l FOR PT TO VOICE FEELINGS, ENCOURAGE MED COMPLIANCE, MONITOR PT BEHAVIORS ON Q15 MIN SAFETY CHECKS.
[2018-12-18 19:27] VITALS: BP 123/67
--- NOTE | 2018-12-18 20:45 | NUR ---
EVENING/RELAXTION/REMINISCE PT ATTENDED AN DPARTICIPATED IN GROUP. PT PLEASANT AND ON TASK WITH NO SEXUALLY INAPPROPRIATE BEHAVIORS OR DELUSIONS EXPRESSED. PT WILL CONTINUE TO ATTEND AND PARTICIPATE IN FUTURE GROUP SESSIONS.
--- NOTE | 2018-12-19 02:48 | NUR ---
P-CONFUSION, DELUSIONAL THOUGHT PROCESS I-ASSESS ORIENTATION, MOOD, AND BEHAVIOR. PRESENT REALITY AND REDIRECT NEEDED. PROVIDE 1:1 WITH EMOTIONAL SUPPORT. ENCOURAGE MEDICATION COMPLIANCE AND EDUCATE. MONITOR SLEEP. R-PATIENT ALERT AND ORIENTED TO SELF WITH CONFUSION, PT STATED THAT IT WAS 1969 AND HE WAS AT [facility]. PT CALM, MOOD STABLE, INTERACTIVE WITH STAFF AND PEERS. 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 PT ALSO STATED THAT HE IS ONLY HERE BECAUSE HE IS GETTING TREATMENT FOR THE ALLERGIES HE GOT WHILE OVER IN [place]. PT MINIMALLY RECEPTIVE TO REALITY ORIENTATION WHEN PRESENTED BY STAFF. PT DENIES SI/HI AND HALLUCINATIONS, NO NOTED RESPONDING TO INTERNAL STIMULI. NO PARANAOIA OBSERVED. PT MEDICATION COMPLIANT WITHOUT DIFFICULTY, UNABLE TO EDUCATE DUE TO COGNITION. NO PHYSICAL COMPLAINTS VOICED. PATIENT CURRENTLY LAYING DOWN WITH EYES CLOSED, RESPIRATIONS EASY AND REGULAR, NO SIGNS OR SYMPTOMS OF DISTRESS NOTED. P-CONTINUE TO MONTIOR MOOD AND BEHAVIORS. PROVIDE 1:1 FOR VENTILATION OF FEELINGS WITH EMOTIONAL SUPPORT NEEDED. CONTINUE TO PRESENT REALITY AND REDIRECT NEEDED. ENCOURAGE MEDICATION COMPLIANCE AND EDUCATE. MAINTAIN Q 15 MIN CHECKS.
--- NOTE | 2018-12-19 04:38 | NUR ---
24 HOUR CHART CHECK COMPLETED.
[2018-12-19 08:23] VITALS: BP 116/50
--- NOTE | 2018-12-19 08:30 | NUR ---
Treatment Plan meeting with Dr. Recinos, RN, AT, SW and Bundle Wrapper. Plan for discharge Monday or Next week. Pt. will return to [facility].
--- NOTE | 2018-12-19 09:08 | NUR ---
PHYSICAL THERAPY Physical therapy evaluation complete, 3N. Moderate complexity evaluation (65086) per chart review and evaluation. Recommend PT to progress transfers, gait, safety, and balance per POC. Recommend return to care home at discharge. Thank you. Lydia Patel,PT,DPT
--- NOTE | 2018-12-19 09:17 | NUR ---
Occupational therapy evaluation completed and POC established on floor three this date, 12/19/18. Patient precautions include fall risk, wheelchair use, decreased cognition and orientation. Per OT eval and POC, OT recommends that patient return to SNF with OT/PT services. Patient would benefit from continued OT treatment to maximize independence in ADLs, functional mobility/transfer, and safety. Patient complexity is moderate, [id number]. Thank you for the referral. Danni Aguilar, OTR/L
--- NOTE | 2018-12-19 11:53 | NUR ---
AM GROUP PT WAS PRESENT FOR MORNING GROUP THERAPY BUT CHOSE TO JUST SIT AND LISTEN TO THE MUSIC. PT WAS QUIET AND EXHIBITED NO INAPPROPRIATE BEHAVIORS WHILE IN GROUP.
--- NOTE | 2018-12-19 14:05 | NUR ---
Clinical Updates faxed to [facility] Attn: Kaity.
--- NOTE | 2018-12-19 15:37 | NUR ---
PM GROUP/SOCIALIZING PT ATTENDED AND PARTICIPATED IN AFTERNOON GROUP THERAPY BY SITTING AT A TABLE WITH PEERS TALKING AND DOING A WORDSEARCH. PT EXHIBITED NO INAPPROPRIATE BEHAVIORS WHILE IN GROUP
--- NOTE | 2018-12-19 16:00 | NUR ---
PT ALERT TO PERSON ONLY, CONFUSION AND SHORT TERM MEMORY DEFICITS NOTED PER PT BASELINE. PT MED COMPLIANT WITHOUT DIFFICULTY, UNABLE TO PROVIDE MED EDUCATION D/T COGNITION. PT CALM, MOOD IS STABLE. PT DENIES ANY SUICIDAL THOUGHTS. NO HALLUCINATIONS OR DELUSIONS NOTED. PT UP TO WHEELCHAIR, REQUIRES 1-2 STAFF ASSIST FOR TRANSFERS AND CARE. PT CONTINENT OF BOWEL AND BLADDER, EPISODES OF INCONTINENCE NOTED, CARE PROVIDED NEEDED. PLAN IS TO MONITOR PT BEHAVIOR SON Q15 MIN SAFETY CHECKS, ENCOURAGE MED COMPLIANCE, PROVIDE EMOTIONAL SUPPORT AND 1:1 FOR PT TO VOICE FEELINGS, RE-ORIENT.
[2018-12-19 19:28] VITALS: BP 150/58
--- NOTE | 2018-12-19 21:44 | NUR ---
P-CONFUSION I-ASSESS ORIENTATION, MOOD, AND BEHAVIOR. PRESENT REALITY AND REDIRECT NEEDED. PROVIDE 1:1 WITH EMOTIONAL SUPPORT. ENCOURAGE MEDICATION COMPLIANCE AND EDUCATE. MONITOR SLEEP. R-PATIENT ALERT AND ORIENTED TO SELF WITH CONFUSION, PT CALM, MOOD STABLE, INTERACTIVE WITH STAFF AND PEERS. NO ADVERSE BEHAVIORS NOTED. PT DENIES SI/HI AND HALLUCINATIONS, NO NOTED RESPONDING TO INTERNAL STIMULI. NO PARANOIA/DELUSIONS NOTED AT THIS TIME. PT MEDICATION COMPLIANT WITHOUT DIFFICULTY, UNABLE TO EDUCATE DUE TO COGNITION. NO PHYSICAL COMPLAINTS VOICED. PATIENT CURRENTLY LAYING DOWN WITH EYES CLOSED, RESPIRATIONS EASY AND REGULAR, NO SIGNS OR SYMPTOMS OF DISTRESS NOTED. P-CONTINUE TO MONTIOR MOOD AND BEHAVIORS. PROVIDE 1:1 FOR VENTILATION OF FEELINGS WITH EMOTIONAL SUPPORT NEEDED. CONTINUE TO PRESENT REALITY AND REDIRECT NEEDED. ENCOURAGE MEDICATION COMPLIANCE AND EDUCATE. MAINTAIN Q 15 MIN CHECKS.
--- NOTE | 2018-12-20 05:02 | NUR ---
24 HOUR CHART CHECK COMPLETED.
--- NOTE | 2018-12-20 05:42 | NUR ---
PATIENT OBSERVED ON Q 15 MIN CHECKS TO HAVE SLEPT APPROX 7 HOURS WITH NO AWAKENINGS OR SIGNS AND SYMPTOMS OF DISTRESS NOTED.
[2018-12-20 06:33] VITALS: BP 142/78
--- NOTE | 2018-12-20 07:45 | NUR ---
PHYSICAL THERAPY PT SITTING IN IN ACTIVITY ROOM UPON ARRIVAL. PT IDENTIFIED BY NAME AND . PT AGREED TO ALL PHYSICAL THERAPY TREATMENT THIS VISIT. SERRANO PRESENT FOR OBSERVATION OF TREATMENT THIS A.M. PT TAKEN TO HALLWAY WHERE PT PERFORMED STS FROM WC TO HAND RAILS ONCE WITH MAXa X1 AND ONCE WITH MODa X2 WITH USE A HAND RAIL. VC'S FOR PT TO STAND UP NICE AND TALL GIVEN. ONCE IN STANDING PT WAS Bozena X1. PT PERFORMED WEIGHT SHIFT IN STANDING WITH NO C/O. PT PERFORMES STS TO WC WITH Bozena/MODa X1. PT REPROTS " I JUST WANT TO KNOW WHY I CAN'T WALK ANYMORE." PT EDUCATED THAT THERAPY IS DOING TO TRY AND HELP PT WITH WALKING ANG STANDING. PT THEN TAKEN BACK INTO ACTIVITY ROOM VIA WC BY REVENUE AUDIT CLERK. REVENUE AUDIT CLERK MANUAL STRETCH BLE HAMSTRINGS 10 X 15 SEC EACH WITH SHORT SEATED BREAKS AFTER 5X. PT LLE HAMSTRING TIGHTER THAN PTS RLE HAMSTRING. PT STATED DURING STRETCHING "MY LEGS FEEL BETTER WHEN YOU DO THIS." PT SITTINGIN IN ACTIVITY ROOM A WAITING BREAKFAST AT END OF SESSION. PT SEEN 1:1 FOR 24MINS. KAI ALMAZAN REVENUE AUDIT CLERK
--- NOTE | 2018-12-20 07:45 | NUR ---
OT NOTE Pt was seen this A.M. 1:1 for 15 minute OT session with [facility] and nursing staff present for observation only. Upon arrival pt was sitting upright in the w/c in the dining room. Pt identified by name and and had complaints of "I feel good just my knees don't want to work." Pt was taken out into the hallway where he completed multiple sit to stand transfers from chair level with modA X 2 and use of hand rail for UE support. Challenged pt's static standing tolerance needed for increased I in self care tasks and functional transfers. Pt was able to tolerate aprox 1 minute at a time before sitting due to fatigue. Pt was left sitting upright in the w/c in the dining room under U staff supervision. Continue with POC as able. ZACH Mcleod/Torie
[2018-12-20 07:48] VITALS: BP 121/64
--- NOTE | 2018-12-20 08:30 | NUR ---
Treatment Plan meeting with Dr. Recinos, RN, AT, SW and Packaging Materials Inspector. Plan for discharge next week. Pt. will return to [facility].
--- NOTE | 2018-12-20 11:48 | NUR ---
AM GROUP/EXERCISE PT ATTENDED MORNING GROUP THERAPY AND PARTICIPATED IN THE EXERCISES WELL ON A WORDSEARCH. PT WAS QUIET AND ON TASK. PT EXHIBITED NO INAPPROPRIATE BEHAVIORS WHILE IN GROUP.
--- NOTE | 2018-12-20 15:01 | NUR ---
Pt pleasant this afternoon while in afternoon activity group. He primarily was interested in working on his word search puzzle. However, he did share about his dog when he heard another patient's conversation about dogs.
--- NOTE | 2018-12-20 15:38 | NUR ---
PM GROUP/ART AND MUSIC PT ATTENDED AND PARTICIPATED IN ALL GROUP ACTIVITIES. PT DID EXPRESS SOME DELUSIONAL IDEATIONS TO THE NURSING STUDENTS BUT EXHIBITED NO INAPPROPRIATE SEXUAL BEHAVIOR.
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
[2018-12-20 19:15] VITALS: BP 140/69
--- NOTE | 2018-12-20 23:56 | NUR ---
24 HR chart check completed.
--- NOTE | 2018-12-21 02:31 | NUR ---
P-CONFUSION. PATIENT ALERT WITH CONFUSION. PATIENT WITH SHORT TERM AND FPC MEMORY DEFICITS. PATIENT WITH NO RESPRIRATORY DISTRESS. PATIENT WITH NO HALLUCINATIONS OR DELUSIONS. PATIENT DENIES SUICIDAL OR HOMICIDAL IDEATIONS. I-REDIRECTION WITH 1:1 THERAPEUTIC INTERVENTIONS AND PRESENT REALITY. EDUCATE AND ENCOURAGE MEDICATION COMPLIANCE R-PATIENT WITH INAPPROPRIATE LAUGHTER TO CONVERSATIONS AT TIMES. PATIENT INTERACTING WITH PEERS IN DINING AREA AT HS. PATIENT MEDICATION COMPLIANT. PATIENT PROVIDED NOURISHMENT, FLUIDS, AND TOILETING AT HS. PATIENT CONTINUES ON CIPRO FOR +UTI. PATIENT WITH NO COMPLIANT OF DYSURIA. P-CONTINUE TO ENCOURAGE MEDICATION COMPLIANCE, CONTINUE TO PRESENT REALITY, ENCOURAGE GROUP THERAPY WHILE AWAKE
--- NOTE | 2018-12-21 05:10 | NUR ---
PATIENT SLEPT >6 HOURS OF UNINTERRUPTED SLEEP THROUGHOUT SHIFT. Q 15 MINUTE CHECKS MAINTAINED
[2018-12-21 07:48] VITALS: BP 113/72
--- NOTE | 2018-12-21 08:06 | NUR ---
PHYSICAL THERAPY PT SITTING IN WC IN ACTIVITY ROOM UPON ARRIVAL. PT IDENTIFIED BY NAME AND VIA MEDICAL WRIST BAND. PT AGREED TO ALL PHYSICAL THERAPY TREATMENT. PT TAKEN TO [address] WAY VIA BY THIS WAGON DRIVER SALESPERSON TO TAKE PART IN THERAPY. PT PERFORMED 2X STS TO AND FROM WC TO HAND RAIL WITH Bozena X1 AND USE OF HAND RAIL FOR ASSISTANCE. PT REQUIRED VC'S FOR PROPER POSTURE. ONCE IN STANDING PT REQUIRED CGA AND WAS ABLE TO STAND FOR 75 SEC EACH TIME. PT PERFORMED STS FROM WC WITH ONE HAND HELD ASSIST AND ONE HAND RAIL WITH Bozena x1. PT GAIT TRAINED WITH ONE AND HELD ASSIST AND ON HAND RAIL WITH WC FOLLOW 8FT X1 WITH MODa X1 WITH VC'S TO ADVANCE LE. 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 PT PERFORMES STS TO WC WITH Bozena X1. PT SHOWED GEOFF/EXCITEMENT WITH SMILE ON FACE AND ASKING FOR HIGH FIVE AFTER GAIT TRAINING. PT TAKEN BACK TO ACTIVITY ROOM AT END OF SESSION TO AWAIT BREAKFAST WITH AIDE PRESENT. PT HAD NO C/O OR OTHER NEEDS AT THIS TIME. PT SEEN 1:1 FOR 16MINS THIS A.MPrisca ALMAZAN WAGON DRIVER SALESPERSON
--- NOTE | 2018-12-21 08:30 | NUR ---
Treatment Plan meeting with Dr. Recinos, RN, AT, SW and Digital Artist. Plan for discharge Next week. Pt. will return to [facility].
--- NOTE | 2018-12-21 08:30 | NUR ---
Patient resting quietly with no c/o discomfort. Respirations easy and regular. Vital signs stable. No overt distress. DR. LEBRON ON UNIT TO ASSESS PT AT THIS TIME. REPORT GIVEN. SHANE CUMMINS
--- NOTE | 2018-12-21 11:37 | NUR ---
Spoke to Ama fregoso [facility] regarding CCR. IP 4 additional days katie for inpatient therapyy. NRD 12/25. Ref # [id number]
--- NOTE | 2018-12-21 11:41 | NUR ---
AM GROUP PT ATTENDED MORNING GROUP THERAPY AND PARTICIPATED BY DOING A WORDSEARCH AND SOCIALIZING WITH THE NURSING STUDENTS. PT EXPRESSED MANY DELUSIONAL IDEATIONS SUCH BEING A POW, BEING IN THE [employer], HAVING SEVERAL BUSINESSES, ETC. PT DID NOT EXHIBIT ANY INAPPROPRIATE BEHAVIORS WHILE IN GROUP
--- NOTE | 2018-12-21 13:13 | NUR ---
PHYSICAL THERAPY CO-SIGN I approve of the Physical Therapy notes written above. SHAGGY GUNDERSON PT,DPT
--- NOTE | 2018-12-21 14:08 | NUR ---
Spoke with Vanesa in Admissions at [facility]. Notified of plans to discharge next week. Clinical Updates faxed to facility.
--- NOTE | 2018-12-21 15:41 | NUR ---
RUPAL GROUP/CHRIS PT ATTENDED AND PARTICIPATED IN ALL GROUP ACTIVITIES. PT EXPRESSED NO DELUSIONAL IDEATION NOR EXHIBITED ANY INAPPROPRIATE BEHAVIORS WHILE IN GROUP.
[2018-12-21 19:57] VITALS: BP 139/70
--- NOTE | 2018-12-21 23:30 | NUR ---
P-CONFUSION. PATIENT ALERT WITH CONFUSION. PATIENT WITH SHORT TERM AND SKILLED NURSING MEMORY DEFICITS. PATIENT WITH NO RESPRIRATORY DISTRESS. PATIENT WITH NO HALLUCINATIONS OR DELUSIONS. PATIENT DENIES SUICIDAL OR HOMICIDAL IDEATIONS. I-REDIRECTION WITH 1:1 THERAPEUTIC INTERVENTIONS AND PRESENT REALITY. EDUCATE AND ENCOURAGE MEDICATION COMPLIANCE R- PATIENT WITH NO SEXUAL INAPPROPRIATE BEHAVIOR. PATIENT WITH INAPPROPRIATE LAUGHTER TO CONVERSATIONS AT TIMES. PATIENT INTERACTING WITH PEERS IN DINING AREA AT HS. PATIENT MEDICATION COMPLIANT. PATIENT PROVIDED NOURISHMENT, FLUIDS, AND TOILETING AT HS. PATIENT CONTINUES ON CIPRO FOR +UTI. PATIENT WITH NO COMPLIANT OF DYSURIA. P-CONTINUE TO ENCOURAGE MEDICATION COMPLIANCE, CONTINUE TO PRESENT REALITY, ENCOURAGE GROUP THERAPY WHILE AWAKE
--- NOTE | 2018-12-22 01:05 | NUR ---
24 HR chart check completed.
--- NOTE | 2018-12-22 06:05 | NUR ---
PATIENT SLEPT >8 HOURS UNINTERRUPTED SLEEP THROUGHOUT SHIFT. Q 15 MINUTE CHECKS MAINTAINED
[2018-12-22 07:52] VITALS: BP 134/70
--- NOTE | 2018-12-22 09:34 | NUR ---
DR. PATRICK ON UNIT TO ASSESS PT, UPDATE PROVIDED, ADVISED THAT PT PHENOBARBITAL NEEDS RENEWED. NO FURTHER ORDERS AT THIS TIME.
--- NOTE | 2018-12-22 11:39 | NUR ---
AM GROUP/EXERCISES/DISCUSSION/ART PT ATTENDED AND PARTICIPATED IN ALL GROUP ACTIVITY. 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 PT STATES "I LEFT DURING LUNCH TIME AND GOT MONEY OUT AND GAVE IT TO THIS STUDENT SO HE CAN GO BECOME A DR, I'M JUST LIKE THAT" PT DID NOT BECOME SEXUALLY INAPPROPRIATE AT THIS TIME AND WILL CONTINUE TO ATTEND AND PARTICIPATE IN FUTURE GROUP SESSIONS.
--- NOTE | 2018-12-22 15:44 | NUR ---
PM GROUP/LEN/LEISURE SKILLS PT ATTENDED AND PARTICIPATED IN ACTIVITY. PT PLEASNAT AN DON TASK WITH NO DELUSIONS EXPRESSED OR SEXUALLY INAPPROPRIATE BEHAVIOR AT THIS TIME. PT WILL CONTINUE TO ATTEND AND PARTICIPATE IN FUTURE GROUP SESSIONS.
--- NOTE | 2018-12-22 16:56 | NUR ---
P: PT REPORTS FEELING SAD AND DEPRESSED STATING "ALL THE ONES I KNOW ARE LEAVING" I: PROVIDED EMOTIONAL SUPPORT AND 1:1 FOR PT TO VOICE FEELINGS, ENCOURAGE MED COMPLIANCE, ENCOURAGE GROUP PARTICIAPTION AND SOCIALIZATION R: PT ALERT TO PERSON ONLY, CONFUSION AND SHORT TERM MEMORY DEFICITS NOTED PER PT BASELINE. PT CALM. PT INTERACTIVE WITH STAFF AND PEERS, PARTICIPATING IN GROUPS/ACTIVITIES. PT STATED "IM FEELING BETTER NOW". PT MED COMPLIANT WITHOUT DIFFICULTY, UNABLE TO PROVIDE MED EDUCATION D/T COGNITION. PT UP TO WHEELCHAIR REQUIRES 1 STAFF ASSIST FOR TRANSFERS AND CARE. PT CONTINENT OF BOWEL AND BLADDER. P: MONITOR PT BEHAVIORS ON Q15 MIN SAFETY CHECKS, ENCOURGAE MED COMPLIANCE, ENCOURAGE GROUP PARTICIPATION AND SOCIALIZATION, PROVIDE EMOTIONAL SUPPORT AND 1:l FOR PT TO VOICE FEELINGS.
[2018-12-22 19:42] VITALS: BP 121/56
--- NOTE | 2018-12-22 21:53 | NUR ---
P-CONFUSION. PATIENT ALERT WITH CONFUSION. PATIENT WITH SHORT TERM AND SENIOR LIVING MEMORY DEFICITS. PATIENT WITH NO RESPIRATORY DISTRESS. PATIENT WITH NO HALLUCINATIONS. PATIENT WITH DELUSIONS THROUGHOUT SHIFT. PATIENT DENIES SUICIDAL OR HOMICIDAL IDEATIONS. I-REDIRECTION WITH 1:1 THERAPEUTIC INTERVENTIONS AND PRESENT REALITY. EDUCATE AND ENCOURAGE MEDICATION COMPLIANCE R-PATIENT WITH NO SEXUAL INAPPROPRIATE BEHAVIOR. PATIENT WITH INAPPROPRIATE LAUGHTER TO CONVERSATIONS AT TIMES. PATIENT INTERACTING WITH PEERS IN DINING AREA AT HS. PATIENT INTERACTING WITH PEERS AND HAVING NONSENSICAL CONVERSATIONS WITH PEERS IN DINING AREA. PATIENT MEDICATION COMPLIANT. PATIENT PROVIDED NOURISHMENT, FLUIDS, AND TOILETING AT HS. PATIENT CONTINUES ON CIPRO FOR +UTI. PATIENT WITH NO COMPLIANT OF DYSURIA. P-CONTINUE TO ENCOURAGE MEDICATION COMPLIANCE, CONTINUE TO PRESENT REALITY, ENCOURAGE GROUP THERAPY WHILE AWAKE
--- NOTE | 2018-12-22 22:54 | NUR ---
24 HR chart check completed.
--- NOTE | 2018-12-23 05:48 | NUR ---
PATIENT SLEPT >7 HOURS OF SLEEP THROUGHOUT SHIFT. Q 15 MINUTE CHECKS MAINTAINED
[2018-12-23 07:21] VITALS: BP 151/76
--- NOTE | 2018-12-23 11:53 | NUR ---
DR. MORENO ON UNIT TO ASSESS PT, UPDATE PROVIDED.
--- NOTE | 2018-12-23 15:37 | NUR ---
NO ADVERSE MOODS OR BEAHVIORS NOTED THIS SHIFT. PT ALERT TO PERSON ONLY, CONFUSION AND SHORT TERM MEMORY DEFICITS NOTED PER PT BASELINE. PT MED COMPLIANT WITOUT DIFFICULTY, UNABLE TO PROVIDE MED EDUCATION D/T COGNITION. PT CALM, MOOD IS STABLE. PT INTERACTIVE WITH STAFF AND PEERS. NO HALLUCINATIONS OR DELUSIONS NOTED. PT DENIES ANY SUICIDAL THOUGHTS. PT UP TO WHEELCHAIR AND REQUIRES 1 STAFF ASSIST FOR TRANSFERS AND CARE. PT CONTINENT OF BOWEL AND BLADDER, EPISODES OF INCONTINENCE NOTED, CARE PROVIDED. PLAN IS TO MONITOR PT BEHAVIORS ON Q15 MIN SAFETY CHECKS, ENCOURAGE MED COMPLIANCE, PROVIDE EMOTIONAL SUPPORT AND 1:1 FOR PT TO VOICE FEELINGS, PRESENT REALITY AND RE-ORIENT NEEDED.
[2018-12-23 20:00] VITALS: BP 143/63
--- NOTE | 2018-12-23 23:43 | NUR ---
PT MEDICATION COMPLIANT, COOPERTIVE WITH HOC, TRANSFERS, NO SI/HI OR DELUSIONS LAUGHING AND JOKING WITH PEERS, MONITOR FOR INAPPROPRIATE BEHAVIORS, REORIENT PT NEEDED DUE TO ST/LT MEMORY DEFICIT. MONITOR 15 MIN CHECKS
--- NOTE | 2018-12-24 04:47 | NUR ---
PT RESTING SINCE 2214 AND REMAINS QUIET IN BED AT THIS TIME.
--- NOTE | 2018-12-24 07:25 | NUR ---
PHYSICAL THERAPY Patient seen this am for therapy visit and was sitting up in activity room w/c upon therapist arrival. OT was present for observation only during AMUSEMENT CENTRE MANAGER visit as patient reports increased B LE tighness. Patient presents with incerased B knee flexion contractures and tolerated seated B LE PNF, D2 extension to improve ROM. Patient performed several sit to stand transfers at rail in hallway, MAX A, followed by gait traing, NITRIC ACID PLANT OPERATOR/MOD with single handrail support, 15' x 1. Patient fatigues quickly and demonstrated Poor upright posture, decreaed stride. Patient was very happy with his progress this session and returned to activity room w/c following treatment. Patient remained in w/c at table awaiting breakfast under [facility] staff Supervision. Will continue per POC as tolerated, total treatment time 13 minutes. Albert Hopkins, AMUSEMENT CENTRE MANAGER
--- NOTE | 2018-12-24 07:35 | NUR ---
Occupational Therapy Treatment- Patient was seen this date for 15 minutes of 1:1 occupational therapy treatment. Patient was seated in his wheelchair in the dining room and was agreeable to OT treatment. EYEGLASS LENS GRINDER was with OT throughout treatment. Patient was A&Ox1, to self only. Patient was re-oriented to place and date. Patient was wheeled into hallway to complete functional sit/stands at hand rail. Patient educated on locking wheels before transfer, with good carryover of education. Patient performed 2 functional sit/stands from wheelchair with bilateral handrail grasp with a Mod Ax2. Patient's standing balance was challenged this date to increase independence for functional transfers/mobility. Patient participated in functional mobility with EYEGLASS LENS GRINDER assistance. Patient returned to a seated position in wheelchair with education on proper hand placement prior to sitting. Patient had fair carryover. Patient returned to dining room to conclude treatment. Patient would benefit from continued OT treatment to max I and safety with ADLs and functional mobility/transfers. Danni Aguilar, OTR/L
[2018-12-24 07:52] VITALS: BP 135/66
--- NOTE | 2018-12-24 08:07 | NUR ---
Patient resting quietly with no c/o discomfort. Respirations easy and regular. Vital signs stable. No overt distress. DR. LEBRON ON UNIT. UPDATE GIVEN. SHANE CUMMINS
[2018-12-24] MEDS ORDERED: RIVASTIGMINE TAR3 M1 PO (08:49)
[2018-12-24] MEDS ORDERED: MEMANTINE HCL10 MG PO (08:49)
[2018-12-24] MEDS ORDERED: MEDROXYPROGESTE10 M1 PO (08:49)
[2018-12-24] MEDS ORDERED: PALIPERIDONE ER3 MG PO (08:49)
--- NOTE | 2018-12-24 08:54 | NUR ---
Call Placed to [facility] to notify of discharge. Spoke with Kaity. Call Placed to Patient Son Cesar [employer] Cell Phone left voice Message to discuss discharge Planning.
--- NOTE | 2018-12-24 09:40 | NUR ---
DR. HAMMOND MADE AWARE OF PT'S PLANS FOR DISCHARGE TODAY.
--- NOTE | 2018-12-24 09:41 | NUR ---
Treatment Plan meeting with Dr. Recinos, RN, AT, SW and Dive Supervisor. Plan for discharge today. Pt. will return to [facility].
--- NOTE | 2018-12-24 11:01 | NUR ---
PT ALERT, CONFUSED. PLEASANT AND COOPERATIVE WITH ASSESSMENT. DISCHARGE PAPERWORK REVIEWED WITH PT. PT DECLINED TO SIGN AT THIS TIME. PT ASSURED ALL PAPERWORK AND DISCHARGE INSTRUCTIONS WILL BE PASS[facility] ON TO [facility]. PT VERBALIZED UNDERSTANDING. WITNESSED BY SECOND RN.
--- NOTE | 2018-12-24 11:36 | NUR ---
AM GROUP PT ATTENDED MORNING GROUP THERAPY AND PARTICIPATED BY COLORING, LIGHT THERAPY AND SOCIALIZING WITH PEERS AND THIS OUTBOARD MOTORBOAT OPERATOR. PT IS STILL DELUSIONAL BUT EXHIBITS NO INAPPROPRIATE SEXUAL BEHAVIORS WHILE IN GROUP. PT IS SET TO BE DISCHARGED FROM THE UNIT TODAY.
--- NOTE | 2018-12-24 12:05 | NUR ---
Discharge Paperwork faxed to [facility].
--- NOTE | 2018-12-24 14:13 | NUR ---
Patient is disharging today returning to [facility]. Follow-up will be with Dr Recinos, visiting psychiatrist. While at [facility], pt's behaviors improved. Pt was not sexually inappropriate. His grandiose delusions lessened. Pt was pleasant and cooperative with staff and peers.
--- NOTE | 2018-12-24 15:17 | NUR ---
Shift chart check completed.
--- NOTE | 2018-12-24 15:40 | NUR ---
PM GROUP/LEISURE INTERESTS PT ATTENDED AFTERNOON GROUP THERAPY AND PARTICIPATED BY COLORING AND SOCIALIZING. PT EXHIBITED NO INAPPROPRIATE SEXUAL BEHAVIORS WHILE IN GROUP. PT IS SET TO BE DISCHARGED FROM THE UNIT THIS AFTERNOON.
--- NOTE | 2018-12-24 17:01 | NUR ---
NURSE TO NURSE REPORT CALLED TO "AKSHAT" AT [facility]. [facility] ON UNIT TO TRANSPORT PT, TWO AMBULANCE ATTENDANTS PRESENT. PT DISCHARGED OFF UNIT AT THIS TIME VIA CART. ALL BELONGINGS AND PAPERWORK SENT WITH AMBULANCE. RUG DESIGNER.
--- NOTE | 2018-12-25 07:43 | NUR ---
PHYSICAL THERAPY CO-SIGN I approve of the Physical Therapy notes written above. SHAGGY GUNDERSON PT, DPT
--- NOTE | 2018-12-25 07:58 | NUR ---
OCCUPATIONAL THERAPY CO-SIGN I approve of the Occupational Therapy notes written above. KATHY AZEVEDO OTR/Torie
--- NOTE | 2018-12-25 09:07 | NUR ---
Discharge clinical called to [facility] and left on confidential voicemail at [phone] option 4.
== END 2018-12-24 17:03 | DRG 883 ==
LOC: ED 16:13 → 3N 18:51
PROVIDERS: ADMIT Psychiatry & Neurology Psychiatry
DX: F63.81 Intermittent explosive disorder (principal); F23 Brief psychotic disorder; I48.92 Unspecified atrial flutter; D68.59 Other primary thrombophilia; E44.0 Moderate protein-calorie malnutrition; N39.0 Urinary tract infection, site not specified; G30.9 Alzheimer's disease, unspecified; F02.80 Dementia in other diseases classified elsewhere, unspecified severity, without behavioral disturbance, psychotic disturbance, mood disturbance, and anxiety; D64.9 Anemia, unspecified; E06.3 Autoimmune thyroiditis; E03.8 Other specified hypothyroidism; R13.12 Dysphagia, oropharyngeal phase; I10 Essential (primary) hypertension; I25.10 Atherosclerotic heart disease of native coronary artery without angina pectoris; G40.909 Epilepsy, unspecified, not intractable, without status epilepticus; I48.91 Unspecified atrial fibrillation; E78.5 Hyperlipidemia, unspecified; E55.9 Vitamin D deficiency, unspecified; E87.8 Other disorders of electrolyte and fluid balance, not elsewhere classified; E11.9 Type 2 diabetes mellitus without complications; Z79.4 Long term (current) use of insulin; Z88.0 Allergy status to penicillin; Z91.013 Allergy to seafood; Z91.09 Other allergy status, other than to drugs and biological substances; Z86.718 Personal history of other venous thrombosis and embolism; Z87.891 Personal history of nicotine dependence; Z79.899 Other long term (current) drug therapy; Z68.27 Body mass index [BMI] 27.0-27.9, adult